=== PATIENT | female | born 1995 | race Caucasian/White ===

== ENCOUNTER 2022-12-29 07:16 | Inpatient (IN) | payer MEDICAID, OTHER ==
[~2022-12-29] VITALS: Ht 157.5 cm; Wt 64.9 kg
[2022-12-29 08:26] LABS: BASOPHILS % (AUTO) 0.7 % (0.0-2.0); EOSINOPHILS % (AUTO) 0.4 % (1.0-6.0); HEMATOCRIT 41.5 % (36-46); HEMOGLOBIN 14.3 g/dL (12.0-16.0); LYMPHOCYTES # (AUTO) 1.6 K/uL (1.0-4.8); LYMPHOCYTES % (AUTO) 22.4 % (22.0-44.0); MEAN CORPUSCULAR HEMOGLOBIN 31.1 pg (26.0-34.0); MEAN CORPUSCULAR HGB CONC 34.5 G/dL (31.0-37.0); MEAN CORPUSCULAR VOLUME 90 fL (80-100); MONOCYTES # (AUTO) 0.9 K/uL (0.1-1.0); MONOCYTES % (AUTO) 12.7 % (2.0-9.0); NEUTROPHILS # (AUTO) 4.6 K/uL (1.8-7.7); NEUTROPHILS % (AUTO) 63.8 % (40.0-70.0); PLATELET COUNT (AUTO) 242 K/uL (150-450); RED CELL DISTRIBUTION WIDTH 12.8 % (11.5-14.5)
[2022-12-29 08:45] LABS: ANION GAP 9 mmol/L (8-16); CARBON DIOXIDE 27 mmol/L (22-29); CHLORIDE 96 mmol/L (98-107); GLUCOSE,RANDOM 106 mg/dL (70-110); SODIUM SERUM 132 mmol/L (136-145)
[2022-12-29 08:46] LABS: ALANINE AMINOTRANSFERASE 48 U/L (12-78); ALBUMIN 3.8 g/dL (3.4-5.0); ALKALINE PHOSPHATASE 95 U/L (46-116); ASPARTATE AMINOTRANSFERASE 38 U/L (15-37); BILIRUBIN,TOTAL 0.6 mg/dL (0.1-1.0); CALCIUM, TOTAL 9.5 mg/dL (8.8-10.5); GLOMERULAR FILTR. RATE CALC > 60 mL/min (>60); TOTAL PROTEIN, SERUM 7.4 g/dL (6.4-8.2)
[2022-12-29 08:47] LABS: ACETAMINOPHEN < 2 mcg/mL (10-30); POTASSIUM 2.8 mmol/L (3.5-5.1)
[2022-12-29] MEDS ORDERED: POTASSIUM CHLORIDE 10% 40 MEQ/30 ML LIQUID UDCUP PO ONE ×2 (09:00→18:30)
[2022-12-29 09:05] LABS: SALICYLATE < 2.8 mg/dL (2.8-20.0)
[2022-12-29 10:03] LABS: COVID AG,FIA SOURCE NASAL SWAB
[2022-12-29 11:20] VITALS: BP 136/87; PULSE 76; RESP 18; TEMP 97.6
[2022-12-29] MEDS: LORazepam 2 MG TABLET PO PRN ×2 (11:58→19:30)
[2022-12-29] MEDS: HALOPERIDOL 5 MG TABLET PO PRN (11:58)
[2022-12-29 20:40] VITALS: BP 116/79; PULSE 100; RESP 18; TEMP 97.6
[2022-12-29] MEDS: ZOLPIDEM TARTRATE 10 MG TABLET PO PRN (21:12)
[2022-12-30] MEDS ORDERED: ONDANSETRON HCL 4 MG TABLET PO PRN (07:45)
[2022-12-30] MEDS ORDERED: PETROLATUM,WHITE 28 GM JELLY TP PRN (07:45)
[2022-12-30] MEDS ORDERED: DOCUSATE SODIUM 100 MG CAPSULE PO PRN (07:45)
[2022-12-30] MEDS ORDERED: LOPERAMIDE HCL 2 MG CAPSULE PO PRN (07:45)
[2022-12-30] MEDS ORDERED: GuaiFENesin/D-METHORPHAN [SUGAR-FREE] 200-20MG/10 ML SYRUP UDCUP PO PRN (07:45)
[2022-12-30] MEDS ORDERED: MAGNESIUM HYDROXIDE SUSPENSION 30 ML UDCUP PO PRN (07:45)
[2022-12-30] MEDS ORDERED: CloNIDine HCL 0.1 MG TABLET PO PRN (07:45)
[2022-12-30] MEDS ORDERED: IBUPROFEN 400 MG TABLET PO PRN (07:45)
[2022-12-30] MEDS ORDERED: ALBUTEROL SULFATE HFA 90 MCG/PUFF 8 GM INHALER IH PRN (07:45)
[2022-12-30] MEDS ORDERED: ACETAMINOPHEN 325 MG TABLET PO PRN (07:45)
[2022-12-30] MEDS ORDERED: NICOTINE 14 MG/24 HOUR PATCH TD PRN (07:45)
[2022-12-30] MEDS ORDERED: MAG HYDROX/AL HYDROX/SIMETH ES 30 ML SUSPENSION UDCUP PO PRN (07:45)
[2022-12-30 08:08] VITALS: BP 115/79; PULSE 120; RESP 18; TEMP 97.2
[2022-12-30] MEDS ORDERED: POTASSIUM CHLORIDE 20 MEQ ER TABLET PO ONE (09:45)
[2022-12-30] MEDS: ESCITALOPRAM OXALATE 10 MG TABLET PO SCH (10:30)
[2022-12-30 20:45] VITALS: RESP 17
[2022-12-31 08:08] VITALS: BP 101/66; PULSE 108; RESP 17; TEMP 97.7
[2022-12-31] MEDS: ESCITALOPRAM OXALATE 10 MG TABLET PO SCH (08:44)
[2022-12-31 09:18] LABS: THYROID STIMULATING HORMONE 1.3 uIU/mL (0.36-3.74)
[2022-12-31 09:54] LABS: CHOL/HDL RATIO 3.6 (3.9-5.7)
[2022-12-31 20:07] VITALS: BP 126/72; PULSE 99; RESP 18; TEMP 98.1
[2023-01-01 08:02] VITALS: BP 110/72; PULSE 67; RESP 17; TEMP 97.8
[2023-01-01] MEDS: ESCITALOPRAM OXALATE 10 MG TABLET PO SCH (09:20)
[2023-01-01 21:59] VITALS: BP 106/79; PULSE 66; RESP 18; TEMP 97.8
[2023-01-02] MEDS: ZOLPIDEM TARTRATE 10 MG TABLET PO PRN (00:08)
[2023-01-02] MEDS: ESCITALOPRAM OXALATE 10 MG TABLET PO SCH (08:53)
[2023-01-02 09:02] VITALS: BP 105/62; PULSE 74; RESP 16; TEMP 98.1
[2023-01-02] MEDS: RisperiDONE 1 MG TABLET PO SCH ×2 (17:00→17:06)
[2023-01-02 21:18] VITALS: BP 102/63; PULSE 74; RESP 18; TEMP 96.9
[2023-01-03] MEDS: ZOLPIDEM TARTRATE 10 MG TABLET PO PRN (01:42)
[2023-01-03 08:33] VITALS: BP 111/71; PULSE 86; RESP 18; TEMP 97.2
[2023-01-03] MEDS: RisperiDONE 1 MG TABLET PO SCH ×2 (08:38→16:13)
[2023-01-03] MEDS: ESCITALOPRAM OXALATE 10 MG TABLET PO SCH (08:38)
[2023-01-03 21:59] VITALS: RESP 18
[2023-01-04] MEDS: ESCITALOPRAM OXALATE 10 MG TABLET PO SCH (08:31)
[2023-01-04] MEDS: RisperiDONE 1 MG TABLET PO SCH ×2 (08:31→17:41)
[2023-01-04 22:11] VITALS: BP 117/76; PULSE 87; RESP 18; TEMP 97.4
[2023-01-05 08:43] VITALS: BP 112/73; PULSE 98; RESP 18; TEMP 97.6
[2023-01-05] MEDS: RisperiDONE 1 MG TABLET PO SCH ×2 (08:53→16:51)
[2023-01-05] MEDS: ESCITALOPRAM OXALATE 10 MG TABLET PO SCH (08:54)
[2023-01-05 20:40] VITALS: BP 100/65; PULSE 69; RESP 19; TEMP 97.5
[2023-01-05] MEDS: ZOLPIDEM TARTRATE 10 MG TABLET PO PRN (22:37)
[2023-01-06 08:00] VITALS: BP 117/82; PULSE 95; RESP 17; TEMP 97.6
[2023-01-06] MEDS: RisperiDONE 1 MG TABLET PO SCH ×2 (08:04→17:58)
[2023-01-06] MEDS: ESCITALOPRAM OXALATE 10 MG TABLET PO SCH (08:07)
[2023-01-06 21:51] VITALS: BP 107/67; PULSE 80; RESP 17; TEMP 97.3
[2023-01-07] MEDS: ESCITALOPRAM OXALATE 10 MG TABLET PO SCH (08:32)
[2023-01-07] MEDS: RisperiDONE 1 MG TABLET PO SCH (08:32)
[2023-01-07 13:02] VITALS: BP 106/70; PULSE 70; RESP 17; TEMP 97.6
[2023-01-07] MEDS: RisperiDONE 2 MG TABLET PO SCH (17:12)
[2023-01-07 20:42] VITALS: BP 98/63; PULSE 73; RESP 17; TEMP 97.4
[2023-01-08 08:11] VITALS: BP 111/71; PULSE 83; RESP 18; TEMP 97.7
[2023-01-08] MEDS: ESCITALOPRAM OXALATE 20 MG TABLET PO SCH (08:57)
[2023-01-08] MEDS: RisperiDONE 2 MG TABLET PO SCH ×2 (08:58→16:43)
[2023-01-08 20:31] VITALS: BP 110/75; PULSE 85; RESP 18; TEMP 97.9
[2023-01-08] MEDS: LORazepam 2 MG TABLET PO PRN (20:31)
[2023-01-09] MEDS: RisperiDONE 2 MG TABLET PO SCH ×2 (08:25→17:27)
[2023-01-09] MEDS: ESCITALOPRAM OXALATE 20 MG TABLET PO SCH (08:25)
[2023-01-09 08:30] VITALS: BP 106/69; PULSE 103; RESP 17; TEMP 97.6
[2023-01-09 20:10] VITALS: BP 100/62; PULSE 98; RESP 17; TEMP 97.6
[2023-01-09] MEDS: LORazepam 2 MG TABLET PO PRN (20:16)
[2023-01-09] MEDS: ZOLPIDEM TARTRATE 10 MG TABLET PO PRN (21:00)
[2023-01-10 08:33] VITALS: BP 125/83; PULSE 90; RESP 18; TEMP 97.1
[2023-01-10] MEDS: ESCITALOPRAM OXALATE 20 MG TABLET PO SCH (08:35)
[2023-01-10] MEDS: RisperiDONE 2 MG TABLET PO SCH ×2 (08:37→16:57)
[2023-01-10 20:50] VITALS: BP 102/60; PULSE 90; RESP 17; TEMP 97.1
[2023-01-10] MEDS: ZOLPIDEM TARTRATE 10 MG TABLET PO PRN (21:45)
[2023-01-11 08:06] VITALS: BP 116/69; PULSE 103; RESP 18; TEMP 97.1
[2023-01-11] MEDS: ESCITALOPRAM OXALATE 20 MG TABLET PO SCH (09:09)
[2023-01-11] MEDS: RisperiDONE 2 MG TABLET PO SCH ×2 (09:09→17:09)
[2023-01-11 20:03] VITALS: BP 101/66; PULSE 107; RESP 18; TEMP 97.1
[2023-01-12] MEDS: RisperiDONE 2 MG TABLET PO SCH ×2 (08:38→17:56)
[2023-01-12 08:58] VITALS: BP 95/67; PULSE 84; RESP 18; TEMP 97.2
[2023-01-12] MEDS: ESCITALOPRAM OXALATE 20 MG TABLET PO SCH (09:00)
[2023-01-12 20:32] VITALS: BP 97/60; PULSE 84; RESP 18; TEMP 97.3
[2023-01-12] MEDS: ZOLPIDEM TARTRATE 10 MG TABLET PO PRN (20:35)
[2023-01-13 09:33] VITALS: BP 100/65; PULSE 89; RESP 16; TEMP 97.2
[2023-01-13] MEDS: RisperiDONE 2 MG TABLET PO SCH ×2 (10:05→17:13)
[2023-01-13] MEDS: ESCITALOPRAM OXALATE 20 MG TABLET PO SCH (10:05)
[2023-01-13 20:09] VITALS: RESP 18
[2023-01-13] MEDS: ZOLPIDEM TARTRATE 10 MG TABLET PO PRN (23:44)
[2023-01-14 08:04] VITALS: BP 107/65; PULSE 98; RESP 18; TEMP 97.6
[2023-01-14] MEDS: ESCITALOPRAM OXALATE 20 MG TABLET PO SCH (09:28)
[2023-01-14] MEDS: RisperiDONE 2 MG TABLET PO SCH ×2 (09:28→16:28)
[2023-01-14 20:36] VITALS: BP 102/63; PULSE 86; RESP 18; TEMP 97.5
[2023-01-14] MEDS: ZOLPIDEM TARTRATE 10 MG TABLET PO PRN (20:51)
[2023-01-14] MEDS: LORazepam 2 MG TABLET PO PRN (22:45)
[2023-01-15 08:02] VITALS: BP 94/60; PULSE 95; RESP 18; TEMP 97.6
[2023-01-15] MEDS: RisperiDONE 2 MG TABLET PO SCH ×2 (08:18→16:57)
[2023-01-15] MEDS: ESCITALOPRAM OXALATE 20 MG TABLET PO SCH (08:18)
[2023-01-15 20:16] VITALS: BP 95/60; PULSE 93; RESP 17; TEMP 97.8
[2023-01-15] MEDS: ZOLPIDEM TARTRATE 10 MG TABLET PO PRN (20:29)
[2023-01-15] MEDS: LORazepam 2 MG TABLET PO PRN (20:29)
[2023-01-16 08:08] VITALS: BP 93/57; PULSE 84; RESP 18; TEMP 97.4; O2SAT 97
[2023-01-16 08:13] VITALS: BP 93/60; PULSE 89; RESP 18; TEMP 97.5
[2023-01-16] MEDS: ESCITALOPRAM OXALATE 20 MG TABLET PO SCH (08:28)
[2023-01-16] MEDS: RisperiDONE 2 MG TABLET PO SCH ×2 (08:28→16:02)
[2023-01-16 20:16] VITALS: BP 96/56; PULSE 79; RESP 16; TEMP 97.4
[2023-01-16] MEDS: ZOLPIDEM TARTRATE 10 MG TABLET PO PRN (20:51)
[2023-01-17] MEDS: RisperiDONE 2 MG TABLET PO SCH ×2 (08:09→16:15)
[2023-01-17] MEDS: ESCITALOPRAM OXALATE 20 MG TABLET PO SCH (08:09)
[2023-01-17 08:37] VITALS: BP 96/61; PULSE 78; RESP 18; TEMP 97.6
[2023-01-17 15:32] LABS: COVID AG,FIA SOURCE NASAL SWAB
[2023-01-17] MEDS: LORazepam 2 MG TABLET PO PRN (19:55)
[2023-01-17 20:39] VITALS: BP 106/64; PULSE 85; RESP 17; TEMP 97.4
[2023-01-17] MEDS: ZOLPIDEM TARTRATE 10 MG TABLET PO PRN (21:13)
[2023-01-18] MEDS: ESCITALOPRAM OXALATE 20 MG TABLET PO SCH (08:21)
[2023-01-18] MEDS: RisperiDONE 2 MG TABLET PO SCH ×2 (08:21→16:22)
[2023-01-18 08:30] VITALS: BP 102/66; PULSE 78; RESP 18; TEMP 97.6
[2023-01-18] MEDS: LORazepam 2 MG TABLET PO PRN (19:45)
[2023-01-18 20:35] VITALS: BP 115/66; PULSE 79; RESP 18; TEMP 97.7
[2023-01-18] MEDS: ZOLPIDEM TARTRATE 10 MG TABLET PO PRN (20:52)
[2023-01-19 08:31] VITALS: BP 94/62; PULSE 101; RESP 18; TEMP 97.5
[2023-01-19] MEDS: ESCITALOPRAM OXALATE 20 MG TABLET PO SCH (08:54)
[2023-01-19] MEDS: RisperiDONE 2 MG TABLET PO SCH ×2 (08:54→17:01)
[2023-01-20] MEDS: LORazepam 2 MG TABLET PO PRN (06:58)
[2023-01-20] MEDS: ESCITALOPRAM OXALATE 20 MG TABLET PO SCH (08:16)
[2023-01-20] MEDS: HALOPERIDOL 5 MG TABLET PO PRN ×2 (08:17→21:13)
[2023-01-20] MEDS: RisperiDONE 2 MG TABLET PO SCH ×2 (08:17→17:36)
[2023-01-20 08:30] VITALS: BP 106/71; PULSE 88; RESP 18; TEMP 97.8
[2023-01-20 20:37] VITALS: BP 109/71; PULSE 94; RESP 17; TEMP 98
[2023-01-20] MEDS: ZOLPIDEM TARTRATE 10 MG TABLET PO PRN ×2 (21:12)
[2023-01-21] MEDS: RisperiDONE 2 MG TABLET PO SCH (08:11)
[2023-01-21] MEDS: ESCITALOPRAM OXALATE 20 MG TABLET PO SCH (08:11)
[2023-01-21 09:20] VITALS: BP 93/60; PULSE 79; RESP 18; TEMP 97.7
[2023-01-21] MEDS: RisperiDONE 3 MG TABLET PO SCH (17:07)
[2023-01-21 20:20] VITALS: BP 113/76; PULSE 71; RESP 18; TEMP 97.1
[2023-01-21] MEDS: ZOLPIDEM TARTRATE 10 MG TABLET PO PRN (20:20)
[2023-01-21] MEDS: LORazepam 2 MG TABLET PO PRN (20:49)
[2023-01-22] MEDS: RisperiDONE 3 MG TABLET PO SCH ×2 (08:07→17:24)
[2023-01-22] MEDS: ESCITALOPRAM OXALATE 20 MG TABLET PO SCH (08:07)
[2023-01-22 10:02] VITALS: BP 90/56; PULSE 87; RESP 18; TEMP 97.1
[2023-01-22] MEDS: LORazepam 2 MG TABLET PO PRN (20:43)
[2023-01-22] MEDS: ZOLPIDEM TARTRATE 10 MG TABLET PO PRN (20:43)
[2023-01-22 22:05] VITALS: BP 118/84; PULSE 89; TEMP 97.8
[2023-01-23] MEDS: ESCITALOPRAM OXALATE 20 MG TABLET PO SCH (08:46)
[2023-01-23] MEDS: RisperiDONE 3 MG TABLET PO SCH ×2 (08:46→16:28)
[2023-01-23 09:46] VITALS: BP 104/62; PULSE 75; RESP 17; TEMP 97.8
[2023-01-23 19:39] LABS: COVID AG,FIA SOURCE NASAL SWAB
[2023-01-23] MEDS: LORazepam 2 MG TABLET PO PRN (19:55)
[2023-01-23 20:12] VITALS: BP 134/74; PULSE 99; RESP 18; TEMP 97.4
[2023-01-23] MEDS: ZOLPIDEM TARTRATE 10 MG TABLET PO PRN (21:21)
[2023-01-24] MEDS: ESCITALOPRAM OXALATE 20 MG TABLET PO SCH (08:49)
[2023-01-24] MEDS: RisperiDONE 3 MG TABLET PO SCH ×2 (08:49→16:04)
[2023-01-24 09:30] VITALS: BP 148/78; PULSE 79; RESP 18; TEMP 97.4
[2023-01-24] MEDS ORDERED: RISP3TAB63 PO ×2 (10:44→11:02)
[2023-01-24] MEDS ORDERED: ESCI20TA87 PO ×2 (10:44→11:02)
== END 2023-01-24 14:55 | disposition home or self-care (01) | DRG 750 ==
LOC: EMS 07:18 → 3EC 11:58 → 3EI 01-22 18:17
PROVIDERS: ADMIT Psychiatry & Neurology Child & Adolescent Psychiatry; ATTEND Psychiatry & Neurology Child & Adolescent Psychiatry
DX: F25.1 Schizoaffective disorder, depressive type (principal); E87.6 Hypokalemia; F41.9 Anxiety disorder, unspecified; G47.00 Insomnia, unspecified; Z20.822 Contact with and (suspected) exposure to COVID-19; R45.88 Nonsuicidal self-harm; Z79.899 Other long term (current) drug therapy
CPT/HCPCS: 80053; 80061; 83036; 84132; 84443; 84703; 85025; 87081; 99285; G0480; G0481

== ENCOUNTER 2023-01-30 21:48 | Emergency (ER) | payer MEDICAID, OTHER ==
[~2023-01-30] VITALS: Ht 154.9 cm; Wt 63.6 kg
[~2023-01-30 21:48] MED LIST: ESCI20TA87 PO; RISP3TAB63 PO
[2023-01-30 23:43] LABS: BASOPHILS % (AUTO) 0.4 % (0.0-2.0); EOSINOPHILS % (AUTO) 1.1 % (1.0-6.0); HEMATOCRIT 39.7 % (36-46); HEMOGLOBIN 13.1 g/dL (12.0-16.0); LYMPHOCYTES # (AUTO) 2.3 K/uL (1.0-4.8); LYMPHOCYTES % (AUTO) 40.4 % (22.0-44.0); MEAN CORPUSCULAR HEMOGLOBIN 30.2 pg (26.0-34.0); MEAN CORPUSCULAR VOLUME 92 fL (80-100); MONOCYTES # (AUTO) 0.6 K/uL (0.1-1.0); MONOCYTES % (AUTO) 11.4 % (2.0-9.0); NEUTROPHILS # (AUTO) 2.6 K/uL (1.8-7.7); NEUTROPHILS % (AUTO) 46.7 % (40.0-70.0); PLATELET COUNT (AUTO) 262 K/uL (150-450); RED BLOOD CELL COUNT(AUTO) 4.34 MIL/uL (4.00-5.20); RED CELL DISTRIBUTION WIDTH 13.2 % (11.5-14.5)
[2023-01-30 23:48] LABS: ANION GAP 10 mmol/L (8-16); CALCIUM, TOTAL 8.8 mg/dL (8.8-10.5); CARBON DIOXIDE 22 mmol/L (22-29); CHLORIDE 98 mmol/L (98-107); GLOMERULAR FILTR. RATE CALC > 60 mL/min (>60); GLUCOSE,RANDOM 88 mg/dL (70-110); POTASSIUM 3.3 mmol/L (3.5-5.1); SODIUM SERUM 130 mmol/L (136-145)
[2023-01-31] LABS: ALANINE AMINOTRANSFERASE 32 U/L (12-78); ALBUMIN 3.3 g/dL (3.4-5.0); ALKALINE PHOSPHATASE 120 U/L (46-116); ASPARTATE AMINOTRANSFERASE 21 U/L (15-37); BILIRUBIN,TOTAL 0.6 mg/dL (0.1-1.0); HCG,QUANTITATIVE < 1 mIU/mL (0-6); TOTAL PROTEIN, SERUM 7.1 g/dL (6.4-8.2)
[2023-01-31] MEDS ORDERED: POTASSIUM CHLORIDE 20 MEQ ER TABLET PO ONE (01:30)
[2023-01-31 01:52] VITALS: TEMP 98.5
[2023-01-31] MEDS ORDERED: QUET50TA24 PO (01:53)
[2023-01-31] MEDS ORDERED: RISP3TAB35 PO (01:53)
[2023-01-31] MEDS ORDERED: ESCI20TA37 PO (01:53)
[2023-01-31 02:21] LABS: COVID AG,FIA SOURCE NASOPHARYNGEAL
[2023-01-31] MEDS ORDERED: RisperiDONE 1 MG TABLET PO ONE (02:45)
[2023-01-31 06:02] VITALS: BP 115/74; PULSE 92; RESP 17
== END 2023-01-31 06:14 | disposition home or self-care (01) ==
LOC: EMS 21:48
DX: F32.A Depression, unspecified (principal); R45.851 Suicidal ideations; F20.9 Schizophrenia, unspecified; Z20.822 Contact with and (suspected) exposure to COVID-19
CPT/HCPCS: 99284; 87426; 80053; 84702; 85025; 36415; G0480

== ENCOUNTER 2023-02-06 19:38 | Inpatient (IN) | payer MEDICAID, OTHER ==
[~2023-02-06] VITALS: Ht 154.9 cm; Wt 59.0 kg
[~2023-02-06 19:38] MED LIST changes: +ESCI20TA37 PO; -ESCI20TA87 PO; +QUET50TA24 PO; +RISP3TAB35 PO; -RISP3TAB63 PO
[2023-02-06 22:34] LABS: BASOPHILS % (AUTO) 0.5 % (0.0-2.0); EOSINOPHILS % (AUTO) 1.2 % (1.0-6.0); HEMATOCRIT 38.5 % (36-46); HEMOGLOBIN 12.5 g/dL (12.0-16.0); LYMPHOCYTES # (AUTO) 3.5 K/uL (1.0-4.8); MEAN CORPUSCULAR HEMOGLOBIN 29.6 pg (26.0-34.0); MEAN CORPUSCULAR HGB CONC 32.4 G/dL (31.0-37.0); MEAN CORPUSCULAR VOLUME 92 fL (80-100); MONOCYTES # (AUTO) 0.8 K/uL (0.1-1.0); MONOCYTES % (AUTO) 10.2 % (2.0-9.0); NEUTROPHILS # (AUTO) 3.2 K/uL (1.8-7.7); NEUTROPHILS % (AUTO) 42.1 % (40.0-70.0); PLATELET COUNT (AUTO) 318 K/uL (150-450); RED BLOOD CELL COUNT(AUTO) 4.21 MIL/uL (4.00-5.20); RED CELL DISTRIBUTION WIDTH 13.5 % (11.5-14.5); WHITE BLOOD COUNT (AUTO) 7.6 K/uL (4.5-11.0)
[2023-02-06 22:42] LABS: ANION GAP 8 mmol/L (8-16); CALCIUM, TOTAL 9.1 mg/dL (8.8-10.5); CARBON DIOXIDE 27 mmol/L (22-29); CHLORIDE 102 mmol/L (98-107); CREATININE 0.51 mg/dL (0.60-1.30); GLOMERULAR FILTR. RATE CALC > 60 mL/min (>60); GLUCOSE,RANDOM 89 mg/dL (70-110); POTASSIUM 3.3 mmol/L (3.5-5.1); SODIUM SERUM 137 mmol/L (136-145); UREA NITROGEN, BLOOD 3 mg/dL (7-18)
[2023-02-06 22:48] LABS: ALANINE AMINOTRANSFERASE 25 U/L (12-78); ALBUMIN 3.3 g/dL (3.4-5.0); ALKALINE PHOSPHATASE 108 U/L (46-116); ASPARTATE AMINOTRANSFERASE 27 U/L (15-37); BILIRUBIN,TOTAL 0.5 mg/dL (0.1-1.0); TOTAL PROTEIN, SERUM 6.7 g/dL (6.4-8.2)
[2023-02-06 22:50] LABS: ALCOHOL, BLOOD (SERUM) < 3 mg/dL (0-10)
[2023-02-06 23:15] LABS: COVID AG,FIA SOURCE NASOPHARYNGEAL
[2023-02-06 23:42] LABS: SARS-COV2 (COVID) ANTIGEN,FIA Negative (Negative)
[2023-02-06 23:59] LABS: ALCOHOL, URINE DRUG SCREEN NEGATIVE (NEGATIVE); AMPHET/METH SCREEN,URINE NEGATIVE (NEGATIVE); BARBITURATE SCREEN, URINE NEGATIVE (NEGATIVE); BENZODIAZEPINES SCREEN,URINE NEGATIVE (NEGATIVE); CANNABINOID SCREEN,URINE POSITIVE (NEGATIVE); COCAINE SCREEN,URINE NEGATIVE (NEGATIVE); METHADONE SCREEN, URINE NEGATIVE (NEGATIVE); OPIATE SCREEN,URINE NEGATIVE (NEGATIVE); PHENCYCLIDINE SCREEN,URINE NEGATIVE (NEGATIVE)
[2023-02-07] MEDS ORDERED: HALOPERIDOL 5 MG TABLET PO PRN (00:15)
[2023-02-07 00:33] LABS: APPEARANCE,URINE TURBID (CLEAR); BILIRUBIN,URINE NEGATIVE (NEGATIVE); COLOR,URINE YELLOW (YELLOW); GLUCOSE, URINE (UA) NEGATIVE (NEGATIVE); KETONES,URINE NEGATIVE (NEGATIVE); LEUKOCYTE ESTERASE ,URINE LARGE (NEGATIVE); NITRATE,URINE NEGATIVE (NEGATIVE); OCCULT BLOOD,URINE NEGATIVE (NEGATIVE); PROTEIN,URINE 30-70 mg/dL (NEGATIVE); SPECIFIC GRAVITIY, URINE 1.009 (1.003-1.030); UROBILINOGEN,URINE <=1.0 mg/dL (<=1.0)
[2023-02-07 01:01] LABS: BACTERIA,URINE Moderate /HPF (None Seen); RBC,URINE 0-2 /HPF (0-2); SQUAMOUS EPITHELIAL CELL,UR Moderate /LPF (None Seen)
[2023-02-07] MEDS: ZOLPIDEM TARTRATE 10 MG TABLET PO PRN (01:22)
[2023-02-07 13:46] VITALS: BP 128/85; PULSE 98; RESP 18; TEMP 97.9; O2SAT 99
[2023-02-07] MEDS: ESCITALOPRAM OXALATE 20 MG TABLET PO SCH (14:19)
[2023-02-07] MEDS: RisperiDONE 3 MG TABLET PO SCH (16:53)
[2023-02-07] MEDS: CEPHALEXIN MONOHYDRATE 500 MG CAPSULE PO SCH (18:27)
[2023-02-07 20:40] VITALS: BP 106/69; PULSE 86; RESP 19; TEMP 97.6; O2SAT 98
[2023-02-08 08:43] VITALS: BP 105/65; PULSE 80; RESP 18; TEMP 97.6; O2SAT 98
[2023-02-08] MEDS: RisperiDONE 3 MG TABLET PO SCH ×2 (09:00→17:28)
[2023-02-08] MEDS: ESCITALOPRAM OXALATE 20 MG TABLET PO SCH (09:00)
[2023-02-08] MEDS: CEPHALEXIN MONOHYDRATE 500 MG CAPSULE PO SCH ×3 (09:38→17:28)
[2023-02-08] MEDS: LORazepam 2 MG TABLET PO PRN (15:59)
[2023-02-08 20:29] VITALS: BP 129/68; PULSE 100; RESP 19; TEMP 98; O2SAT 95
[2023-02-08] MEDS: ZOLPIDEM TARTRATE 10 MG TABLET PO PRN (21:18)
[2023-02-09] MEDS: RisperiDONE 3 MG TABLET PO SCH ×2 (08:42→17:10)
[2023-02-09] MEDS: CEPHALEXIN MONOHYDRATE 500 MG CAPSULE PO SCH ×3 (08:42→17:10)
[2023-02-09] MEDS: ESCITALOPRAM OXALATE 20 MG TABLET PO SCH (09:00)
[2023-02-09 11:58] VITALS: BP 109/69; PULSE 85; RESP 18; TEMP 97.9; O2SAT 97
[2023-02-09] MEDS: ZOLPIDEM TARTRATE 10 MG TABLET PO PRN (20:27)
[2023-02-09 20:42] VITALS: BP 107/67; PULSE 79; RESP 18; TEMP 97.9; O2SAT 98
[2023-02-10 08:40] VITALS: BP 104/59; PULSE 74; RESP 18; TEMP 98; O2SAT 96
[2023-02-10] MEDS: ESCITALOPRAM OXALATE 20 MG TABLET PO SCH (09:00)
[2023-02-10] MEDS: RisperiDONE 3 MG TABLET PO SCH ×2 (09:31→16:26)
[2023-02-10] MEDS: CEPHALEXIN MONOHYDRATE 500 MG CAPSULE PO SCH ×3 (09:32→16:27)
[2023-02-10 20:54] VITALS: BP 119/71; PULSE 100; RESP 18; TEMP 97.6; O2SAT 96
[2023-02-10] MEDS: ZOLPIDEM TARTRATE 10 MG TABLET PO PRN (22:24)
[2023-02-11] MEDS: RisperiDONE 3 MG TABLET PO SCH ×4 (09:09→18:21)
[2023-02-11] MEDS: CEPHALEXIN MONOHYDRATE 500 MG CAPSULE PO SCH ×5 (09:09→18:21)
[2023-02-11] MEDS: ESCITALOPRAM OXALATE 10 MG TABLET PO SCH (09:09)
[2023-02-11 10:08] VITALS: BP 110/60; PULSE 78; RESP 20; TEMP 98.8; O2SAT 100
[2023-02-11 20:43] VITALS: BP 106/76; PULSE 99; RESP 18; TEMP 98; O2SAT 99
[2023-02-11] MEDS: ZOLPIDEM TARTRATE 10 MG TABLET PO PRN (21:24)
[2023-02-11 22:23] VITALS: BP 111/74; PULSE 100; RESP 18; O2SAT 98
[2023-02-11] MEDS: LORazepam 2 MG TABLET PO PRN (22:23)
[2023-02-12 08:42] VITALS: BP 105/60; PULSE 88; RESP 18; TEMP 97.4; O2SAT 96
[2023-02-12] MEDS: ESCITALOPRAM OXALATE 10 MG TABLET PO SCH (09:00)
[2023-02-12] MEDS: RisperiDONE 3 MG TABLET PO SCH (09:22)
[2023-02-12] MEDS: CEPHALEXIN MONOHYDRATE 500 MG CAPSULE PO SCH (09:22)
[2023-02-12] MEDS: LORazepam 2 MG TABLET PO PRN (10:53)
[2023-02-12] MEDS ORDERED: ESCI-8 PO (11:02)
[2023-02-12] MEDS ORDERED: RISP3TAB63 PO (11:22)
== END 2023-02-12 13:00 | disposition home or self-care (01) | DRG 750 ==
LOC: EMS 19:39 → B2S 02-07 10:02
PROVIDERS: ADMIT Psychiatry & Neurology Child & Adolescent Psychiatry; ATTEND Psychiatry & Neurology Child & Adolescent Psychiatry
DX: F25.1 Schizoaffective disorder, depressive type (principal); R45.851 Suicidal ideations; E87.6 Hypokalemia; I10 Essential (primary) hypertension; Z20.822 Contact with and (suspected) exposure to COVID-19; F41.9 Anxiety disorder, unspecified; F12.10 Cannabis abuse, uncomplicated; Z79.899 Other long term (current) drug therapy; Z59.00 Homelessness unspecified
CPT/HCPCS: 80053; 80307; 81001; 84132; 85025; 87081; 87086; 87186; 99285; G0480